=== PATIENT | female | born 1965 | race African-American/Black ===

== ENCOUNTER → 2024-03-20 06:38 | Outpatient (REF) | payer BC, SELFPAY | LOC: HWWDC 06:38 | PROVIDERS: ATTENDING PHYSICIAN Nurse Practitioner Family | DX: Z12.31 Encounter for screening mammogram for malignant neoplasm of breast (principal) | CPT/HCPCS: 77063; 77067 ==

== ENCOUNTER → 2024-06-29 14:35 | Outpatient (REF) | payer BC, SELFPAY | LOC: RCS 14:35 | PROVIDERS: ATTENDING PHYSICIAN Nurse Practitioner Family | DX: R07.89 Other chest pain (principal); R06.09 Other forms of dyspnea | CPT/HCPCS: 93017 ==

== ENCOUNTER → 2024-08-15 14:22 | Outpatient (REF) | payer BC, SELFPAY | LOC: HWRAD 14:22 | PROVIDERS: ATTENDING PHYSICIAN Nurse Practitioner Family | DX: R06.09 Other forms of dyspnea (principal) | CPT/HCPCS: 71046 ==

== ENCOUNTER 2025-02-21 12:23 | Emergency (ER) | payer BC, SELFPAY ==
[2025-02-21 12:25] VITALS: BP 170/89
--- NOTE | 2025-02-21 14:03 | ED.GENMED ---
History of Present Illness
<Mike Duran PA-C - Last Filed: 02/21/25 15:59>
General
Chief Complaint: Abdominal Symptoms
Source: patient
Exam Limitations: none
Time Seen by Provider: 02/21/25 13:46
History of Present Illness
History of Present Illness:
59-year-old female presents complaining of lower abdominal pain onset this morning. The pain is constant on both sides does not radiate to the back no associated urinary symptoms. No fevers or vomiting. No chest pain or shortness of breath. No
other complaints at this time. She has a history of bilateral oophorectomy
Phy Exam
<Mike Duran PA-C - Last Filed: 02/21/25 15:59>
Physical Exam
Physical Exam:
General: Well-appearing female in no acute resp dress
HEENT normal cephalic atraumatic
Heart: Regular rate and rhythm no murmurs
Lungs: Clear no wheeze
Abdomen is soft tender to the lower abdomen and bilaterally
Extremities: No cyanosis or edema
Course
<Mike Duran PA-C - Last Filed: 02/21/25 15:59>
Orders/Labs/Results
Orders:
Orders
02/21/25 14:03
CT Abd/pelvis W Iv Cont Urgent
Comment:
Reason For Exam: abdominal pain
02/21/25 14:35
Complete Blood Count/With Diff Urgent
Comprehensive Metabolic Panel Urgent
Urinalysis Reflex To Culture Urgent
Date Specimen was Collected: 02/21/25
Time Specimen was Collected: 14:06
Abnormal Lab Results
02/21/25
14:35
WBC 4.2 L 10^3/uL
(4.8-10.8)
MCHC 32.9 L g/dL
(33.0-37.0)
Neutrophils % 39.5 L %
(42.2-75.2)
Monocytes % 11.1 H %
(1.7-9.3)
ALT 49 H U/L
(0-35)
02/21/25 14:35
02/21/25 14:35
Vital Signs
Initial and Last Documented VS:
Initial Vital Signs
Temp Pulse Resp BP Pulse Ox
98.3 F 75 16 170/89 100
02/21/25 12:25 02/21/25 12:25 02/21/25 12:25 02/21/25 12:25 02/21/25 12:25
Last Documented Vital Signs
Temp Pulse Resp BP Pulse Ox
98.3 F 75 16 125/85 100
02/21/25 12:25 02/21/25 15:56 02/21/25 12:25 02/21/25 16:00 02/21/25 16:30
<Keo Heard PA-C - Last Filed: 02/21/25 20:57>
Orders/Labs/Results
Orders:
Orders
02/21/25 14:03
CT Abd/pelvis W Iv Cont Urgent
Comment:
Reason For Exam: abdominal pain
02/21/25 14:35
Complete Blood Count/With Diff Urgent
Comprehensive Metabolic Panel Urgent
Urinalysis Reflex To Culture Urgent
Date Specimen was Collected: 02/21/25
Time Specimen was Collected: 14:06
Abnormal Lab Results
02/21/25
14:35
WBC 4.2 L 10^3/uL
(4.8-10.8)
MCHC 32.9 L g/dL
(33.0-37.0)
Neutrophils % 39.5 L %
(42.2-75.2)
Monocytes % 11.1 H %
(1.7-9.3)
ALT 49 H U/L
(0-35)
02/21/25 14:35
02/21/25 14:35
Vital Signs
Initial and Last Documented VS:
Initial Vital Signs
Temp Pulse Resp BP Pulse Ox
98.3 F 75 16 170/89 100
02/21/25 12:25 02/21/25 12:25 02/21/25 12:25 02/21/25 12:25 02/21/25 12:25
Last Documented Vital Signs
Temp Pulse Resp BP Pulse Ox
98.3 F 75 16 125/85 100
02/21/25 12:25 02/21/25 15:56 02/21/25 12:25 02/21/25 16:00 02/21/25 16:30
<Mike Duran PA-C - Last Filed: 02/21/25 15:59>
MDM/Problems Addressed
Differential Diagnosis Includes:
Lower abdominal pain. Consider UTI versus diverticulitis versus constipation
CT pending will check labs and urine
<Mike Duran PA-C - Last Filed: 02/21/25 15:59>
*Pulse Oximetry
SaO2: 100
Oxygen Mode of Delivery: Room air
<Keo Heard PA-C - Last Filed: 02/21/25 20:57>
*Radiology
Radiology exam reviewed: radiology read reviewed
*Pulse Oximetry
Patient hypoxic: no
*Critical Care Note
Total Time (30-74mins, 75-104mins- exclusive of procedures): Not Applicable
<Keo Heard PA-C - Last Filed: 02/21/25 20:57>
Patient Management
Escalation/DeEscalation of care consider admission/obs:
Patient received in signout pending CT scan results.
CT scan shows small lesions within the right hepatic lobe and right renal lesion too small to characterize. There is also a tiny fat-containing umbilical hernia which could possibly explain patient's symptoms. At time of my examination patient
reports that she is pain-free and feeling much better. Discussed these findings with the patient and provided her with a printout of the CT scan report. Encourage close follow-up with primary care provider. Patient is aware of return precautions
to the emergency department.
ED Attending Note
<Mike Duran PA-C - Last Filed: 02/21/25 15:59>
-
Portions of this chart may have been created with voice recognition software.� Occasional wrong word or��sound alike� substitutions may have occurred due to the inherent limitations of voice recognition software.
Discharge Plan
Departure
Patient Disposition: Home (Routine Discharge)
Date of Disposition: 02/21/25
Time of Disposition: 17:23
Patient with high blood pressure during this ER visit?: Yes
Discharge Problem:
Abdominal pain
Instructions: Abdominal Pain
Referrals:
Zenon Smith CRNP [Family Provider, Family Practice]
Interventions
Interventions:
*Risk Screen - Suicide Last Done: 02/21/25 12:29
*General Assessment Last Done: 02/21/25 13:53
*Neglect/Abuse Screening Last Done: 02/21/25 12:29
*ED- Fall Risk Assessment Last Done: 02/21/25 13:53
*ED COVID-19 Vaccine History Last Done: 02/21/25 13:53
*Nursing Disposition Last Done: 02/21/25 17:49
PA-Xgztbg-Tvlxwxyytp Assessment Last Done: 02/21/25 13:53
Discharge Date and Time
Discharge Date/Time: 02/21/25 17:30
Print Language: GREENLANDIC
[2025-02-21 14:40] VITALS: BP 132/85
[2025-02-21 14:53] LABS: Hematocrit 37.7 % (37.0-47.0); Hemoglobin 12.4 g/dL (12.0-16.0); Mean Corp Hgb Conc. 32.9 g/dL (33.0-37.0); Mean Corpuscular Volume 84.0 fL (81.0-99.0); Nucleated Red Blood Cells % 0 %; Platelet Count 355 10^3/uL (130-400); Red Cell Dist. Width 13.5 % (11.5-14.5)
[2025-02-21 15:00] VITALS: BP 138/76
[2025-02-21 15:01] LABS: ALT (SGPT) 49 U/L (0-35); AST (SGOT) 33 U/L (14-36); Albumin 4.4 g/dl (3.5-5.0); Alkaline Phosphatase 96 U/L (38-126); Blood Urea Nitrogen 13 mg/dl (7-17); Calcium 9.8 mg/dl (8.4-10.2); Carbon Dioxide 29 mmol/L (22-30); Chloride 105 mmol/L (98-107); Glucose 97 mg/dl (70-99); Potassium 4.1 mmol/L (3.5-5.1); Sodium 141 mmol/L (135-145); Total Protein 7.3 g/dl (6.3-8.2); eGFR > 60.00
[2025-02-21 15:02] LABS: Urine Character Clear (Clear)
[2025-02-21 16:00] VITALS: BP 125/85
== END 2025-02-21 17:30 | disposition home or self-care (01) ==
LOC: EMR 12:23
PROVIDERS: Physician Assistant; EMERGENCY PHYSICIAN Emergency Medicine; FAMILY PHYSICIAN Nurse Practitioner Family
DX: R10.9 Unspecified abdominal pain (principal); K42.9 Umbilical hernia without obstruction or gangrene; K76.9 Liver disease, unspecified; R03.0 Elevated blood-pressure reading, without diagnosis of hypertension
CPT/HCPCS: 99284; 74177; 80053; 81003; 85025; Q9967

== ENCOUNTER → 2025-02-22 15:22 | Outpatient (REF) | payer BC, SELFPAY | LOC: RAD 15:22 | PROVIDERS: ATTENDING PHYSICIAN Nurse Practitioner Family | DX: R42 Dizziness and giddiness (principal); R51.9 Headache, unspecified; R26.89 Other abnormalities of gait and mobility; Z86.79 Personal history of other diseases of the circulatory system | CPT/HCPCS: 70496; 70498; Q9967 ==

== ENCOUNTER → 2025-02-25 15:51 | Outpatient (REF) | payer BC, SELFPAY ==
[2025-02-25 17:28] LABS: D-Dimer 0.41 ug/mlFEU (0.00-0.50)
== END ==
LOC: REG 15:51
PROVIDERS: ATTENDING PHYSICIAN Nurse Practitioner Family
DX: R06.09 Other forms of dyspnea (principal)
CPT/HCPCS: 36415; 85379

== ENCOUNTER → 2025-02-26 12:09 | Outpatient (REF) | payer BC, SELFPAY | LOC: HWRCS 12:09 | PROVIDERS: ATTENDING PHYSICIAN Nurse Practitioner Family | DX: R06.09 Other forms of dyspnea (principal) | CPT/HCPCS: 93306 ==

== ENCOUNTER → 2025-03-04 10:40 | Outpatient (REF) | payer BC, SELFPAY ==
[2025-03-04 16:42] LABS: Hematocrit 40.2 % (37.0-47.0); Hemoglobin 13.0 g/dL (12.0-16.0); Mean Corp Hgb Conc. 32.3 g/dL (33.0-37.0); Mean Corpuscular Volume 86.3 fL (81.0-99.0); Nucleated Red Blood Cells % 0 %; Platelet Count 421 10^3/uL (130-400); Red Cell Dist. Width 13.9 % (11.5-14.5)
[2025-03-04 17:04] LABS: ALT (SGPT) 14 U/L (0-35); AST (SGOT) 22 U/L (14-36); Albumin 4.3 g/dl (3.5-5.0); Alkaline Phosphatase 93 U/L (38-126); Blood Urea Nitrogen 13 mg/dl (7-17); Calcium 10.0 mg/dl (8.4-10.2); Carbon Dioxide 29 mmol/L (22-30); Chloride 108 mmol/L (98-107); GGTP 22 U/L (12-43); Glucose 100 mg/dl (70-99); Potassium 4.4 mmol/L (3.5-5.1); Sodium 143 mmol/L (135-145); Total Protein 7.2 g/dl (6.3-8.2); eGFR > 60.00
== END ==
LOC: HWLAB 10:40
PROVIDERS: ATTENDING PHYSICIAN Nurse Practitioner Family; REFERRING PHYSICIAN Ophthalmology Retina Specialist
DX: R16.0 Hepatomegaly, not elsewhere classified (principal); I10 Essential (primary) hypertension; R42 Dizziness and giddiness
CPT/HCPCS: 36415; 80053; 82977; 85025; 93005

== ENCOUNTER 2025-03-12 14:36 | Emergency (ER) | payer BC, SELFPAY ==
[2025-03-12 14:39] VITALS: BP 152/84
[2025-03-12 14:57] LABS: Hematocrit 36.7 % (37.0-47.0); Hemoglobin 12.0 g/dL (12.0-16.0); Mean Corp Hgb Conc. 32.7 g/dL (33.0-37.0); Mean Corpuscular Volume 85.2 fL (81.0-99.0); Nucleated Red Blood Cells % 0 %; Platelet Count 403 10^3/uL (130-400); Red Cell Dist. Width 14.1 % (11.5-14.5)
[2025-03-12 15:21] LABS: ALT (SGPT) 14 U/L (0-35); AST (SGOT) 25 U/L (14-36); Albumin 4.5 g/dl (3.5-5.0); Alkaline Phosphatase 87 U/L (38-126); Blood Urea Nitrogen 23 mg/dl (7-17); Calcium 9.6 mg/dl (8.4-10.2); Carbon Dioxide 30 mmol/L (22-30); Chloride 105 mmol/L (98-107); Glucose 100 mg/dl (70-99); Potassium 4.3 mmol/L (3.5-5.1); Sodium 140 mmol/L (135-145); Total Protein 7.4 g/dl (6.3-8.2); eGFR > 60.00
--- NOTE | 2025-03-12 16:32 | ED.GENMED ---
History of Present Illness
General
Chief Complaint: Abdominal Pain
Time Seen by Provider: 03/12/25 16:32
History of Present Illness
History of Present Illness:
FOCUSED PAST MEDICAL HISTORY
- High blood pressure, ovarian cyst, clip for brain aneurysm
REVIEW OF OLD RECORDS
- The patient was seen here in the emergency department with abdominal pain nearly 3 weeks ago and at that time showed no acute abnormality however fibroids were noted and a tiny fat only containing umbilical hernia was noted as well.
Note:
CHIEF COMPLAINT(S)
Abdominal pain localized around the umbilical area.
HISTORY OF PRESENT ILLNESS
The patient is a 59-year-old female with a recent history of abdominal surgery who presented with abdominal pain. She reported that this presentation is similar to her previous visit approximately three weeks ago when she experienced abdominal
distension and heaviness. At that time, imaging revealed a small umbilical hernia consisting of fatty tissue, with no involvement of the intestines.
Currently, she describes localized pain around her umbilicus without additional systemic symptoms such as vomiting or fever. The patient noted that she feels a sensation thomas to muscle soreness after exercise, which worsens with movement or when
lifting objects. She has observed a transient lump in the area which subsides, and it was noted to potentially increase with activity.
She has not taken photographs of the swelling but was advised to consider doing so for future reference. She reports that symptoms improve when she is lying flat and has not experienced any vomiting or additional gastrointestinal symptoms.
The patient had a prior surgical removal of her ovaries on December 21 due to ovarian cysts with potential malignant transformation. She reports that the surgeon accessed her abdominal cavity via the umbilicus and three additional sites. She follows
up with her surgical team at [facility] and has an appointment scheduled for this coming Tuesday. No additional imaging or intervention is planned at present.
PAST MEDICAL AND SURIGICAL HISTORY
- Ovariectomy for ovarian cysts with potential for cancerous transformation.
CHRONIC MEDICAL CONDITIONS SIGNIFICANTLY AFFECTING CARE
- Strong family history of cancer, with three siblings affected.
SOCIAL DETERMINANTS AFFECTING HEALTH
- Patient follows up at [facility] due to prior surgery for ovarian cysts. No further social determinants affecting health were discussed.
REVIEW OF SYSTEMS
- Gastrointestinal: Reports abdominal pain around the navel area, no vomiting.
- Constitutional: Denies fever.
PHYSICAL EXAM
General: No acute distress.
Skin: Warm, dry.
Neck: Supple, trachea midline.
Eye, Ears, Nose, Mouth, and Throat: Oral mucosa moist.
Cardiovascular: Normal peripheral perfusion, No edema.
Respiratory: Respirations are non-labored.
Gastrointestinal: Minimal tenderness along with some very subtle soft tissue prominence noted around the umbilicus, no palpable hernia contents indicating intestinal involvement. Abdomen nondistended.
Back: Normal range of motion, Normal alignment.
Musculoskeletal: Normal range of motion, normal strength.
Neurological: Alert and oriented to person, place, time, and situation, No focal neurological deficit observed.
Psychiatric: Cooperative, appropriate mood & affect.
PLAN
- Recommend follow-up with the surgical team at [facility] for further evaluation of the umbilical hernia and explore potential surgical options.
- Consider taking intermittent photographs of the affected area if the lump protrudes again for future medical evaluation.
- Suggest using intermittent ice to help with any protrusion or discomfort.
- Encourage intermittent use of ibuprofen for symptomatic pain relief.
- Plan to provide the patient with a CD of her previous CT scan from three weeks ago to present at her upcoming follow-up.
- Recommend against additional imaging at this time, considering no alarming symptoms are present and to minimize radiation exposure.
DIFFERENTIAL DIAGNOSIS
The Differential Diagnosis includes, in no particular order and is not limited to:
1. Umbilical hernia
2. Incisional hernia
3. Abdominal wall strain
4. Lipoma
5. Diastasis recti
6. Intra-abdominal mass
7. Gastrointestinal obstruction
8. Incarcerated hernia
9. Abdominal adhesions
10. Subcutaneous abscess
LABS
- White count 5.2, hemoglobin 12.0, chemistries unremarkable
UPDATE
-SUMMARY OF ENCOUNTER
The patient, a 59-year-old female with a history of recent abdominal surgery, was seen for evaluation of abdominal pain localized around the umbilicus, suspected to be due to a fat-containing umbilical hernia. The possibility of it being incisional
is noted given her recent postoperative status. She was advised to continue with her scheduled follow-up with her surgical team at [facility] for further management. No additional imaging was deemed necessary at this time.
PLAN
Recommend the patient continue with her follow-up appointment at [facility]. A copy of her previous CT scan will be provided to bring to the appointment.
FOLLOW-UP INSTRUCTIONS
The patient was instructed to follow up with her surgical team at [facility] as scheduled.
MEDICAL DECISION MAKING
-Complexity of Data Reviewed:
Chronic conditions affecting care: Prior history of ovariectomy due to ovarian cysts with potential for malignant transformation.
Differential Diagnosis includes:
1. Umbilical hernia
2. Incisional hernia
3. Abdominal wall strain
4. Lipoma
5. Diastasis recti
6. Intra-abdominal mass
7. Gastrointestinal obstruction
8. Incarcerated hernia
9. Abdominal adhesions
10. Subcutaneous abscess
-Data:
Category 1: Reviewed prior imaging (CT scan) for patient�s abdominal condition.
-Risk:
Consideration of Admission/Observation: Escalation of care including admission/observation was considered given the complexity and risk of the patients presenting complaint and her underlying conditions. However, ultimately, I feel the patient is
safe for outpatient management with close follow-up. The workup is reassuring, patients symptoms are well-controlled upon reevaluation, reexamination is reassuring, vitals are stable, patient is agreeable with discharge, and reliable for follow-up.
DIAGNOSIS
Umbilical hernia (K42.9)
Incisional hernia (K43.2)
Phy Exam
Physical Exam
Physical Exam:
See HPI
Course
Orders/Labs/Results
Orders:
Orders
03/12/25 14:50
CMP [Comprehensive Metabolic Panel] Urgent
Complete Blood Count/With Diff Urgent
Abnormal Lab Results
03/12/25
14:50
Hct 36.7 L %
(37.0-47.0)
MCHC 32.7 L g/dL
(33.0-37.0)
Plt Count 403 H 10^3/uL
(130-400)
Monocytes % 9.7 H %
(1.7-9.3)
BUN 23 H mg/dl
(7-17)
Glucose 100 H mg/dl
(70-99)
03/12/25 14:50
03/12/25 14:50
Vital Signs
Initial and Last Documented VS:
Initial Vital Signs
Temp Pulse Resp BP Pulse Ox
36.8 C 75 18 152/84 94
03/12/25 14:39 03/12/25 14:39 03/12/25 14:39 03/12/25 14:39 03/12/25 14:39
Last Documented Vital Signs
Temp Pulse Resp BP Pulse Ox
36.8 C 75 18 152/84 94
03/12/25 14:39 03/12/25 14:39 03/12/25 14:39 03/12/25 14:39 03/12/25 16:35
*Pulse Oximetry
SaO2: 94
Oxygen Mode of Delivery: Room air
Patient hypoxic: no
*Critical Care Note
Total Time (30-74mins, 75-104mins- exclusive of procedures): Not Applicable
ED Attending Note
-
Portions of this chart may have been created with voice recognition software.� Occasional wrong word or��sound alike� substitutions may have occurred due to the inherent limitations of voice recognition software.
Discharge Plan
Interventions
Interventions:
*Risk Screen - Suicide Last Done: 03/12/25 14:39
*General Assessment Last Done: 03/12/25 14:39
Discharge Date and Time
Print Language: [id number]
== END 2025-03-12 17:57 | disposition home or self-care (01) ==
LOC: EMR 14:36
PROVIDERS: Student in an Organized Health Care Education/Training Program; EMERGENCY PHYSICIAN Emergency Medicine; FAMILY PHYSICIAN Nurse Practitioner Family
DX: K42.9 Umbilical hernia without obstruction or gangrene (principal); I10 Essential (primary) hypertension; D25.9 Leiomyoma of uterus, unspecified; Z90.722 Acquired absence of ovaries, bilateral
CPT/HCPCS: 99283; 80053; 85025